=== PATIENT | male | born 1950 | race Caucasian/White ===

== ENCOUNTER 2022-09-28 10:48 | Day surgery (SDC) | payer MEDICARE, SELFPAY ==
[2022-09-25 09:48] VITALS: BMI 30.9
--- NOTE | 2022-09-28 07:46 | WPDANESEPPF ---
Anes - Initial Pre Proc Eval Procedure: Operation Date: 09/28/22 14:00 Proposed Procedures p Diagnostic Colonoscopy - Randell Watkins MD Date/Time: 09/28/22 07:46 Surgeon: Randell Watkins MD Pre Op Diagnosis: Melena, Hx of colon polyps, uspecified hemorrhoids Patient Data Age: 72 Gender: M Height: 1.75 m Weight: 95 kg Allergies Allergy/AdvReac Type Severity Reaction Status Date / Time cortisone Allergy Severe TREMORS Verified 09/28/22 11:00 iodine Allergy Unknown Unknown Verified 09/28/22 11:00 metronidazole Allergy Unknown Unknown Verified 09/28/22 11:00 prednisone Allergy Unknown Unknown Verified 09/28/22 11:00 ezetimibe [From Zetia] AdvReac Mild muscle Verified 09/28/22 11:00 aches Thlkmsr-WLO-ZzJ Reductase AdvReac Mild body aches Verified 09/28/22 11:00 Inhibitor [Gwgvacn-Lnm-Toq Reductase Inhibitor] Home Medications Medication Instructions Recorded Confirmed Type alprazolam 0.5 mg tablet 0.5 mg PO BID #60 tabs 04/18/22 09/28/22 Rx benazepril 20 mg tablet 20 mg PO DAILY #90 tabs 04/25/22 09/28/22 Rx lactobacillus combination no.9 4 4,000 mmu cells PO DAILY 09/13/22 09/28/22 History billion cell capsule (Adult 50 Plus Probiotic) Patient hx anesthesia problems: none Family hx anesthesia problems: none Results Review: All pre-operative results and documents have been reviewed as part of the pre-operative evaluation. [facility] Past Medical History Medical History (Updated 09/28/22 @ 07:47 by Fredy Moody DO) Anxiety disorder, unspecified BMI 31.0-31.9,adult BMI 32.0-32.9,adult Change in bowel habits Chronic constipation Essential (primary) hypertension Hematochezia Hx of colonic polyps Lipoma of arm Mixed hyperlipidemia Otitis media Family History Family History Father Hypertension Family history of diabetes mellitus in first degree relative Family history of coronary artery disease Sibling Family history of lymphoma Mother Social History Social History Smoking status: Never smoker Second hand tobacco smoke exposure: No Alcohol intake: never Substance use: never Substance use type: does not use Lack of Transportation: No Lack of Food: Never True Current Housing: I Have Housing Concerned About Future Housing: No Difficulty Paying Gas/Electric Bills: No Difficulty Paying for Meds: No Currently Unemployed: No Education: High School Diploma/GED Difficulty w/ Childcare or Family Care: No Living arrangements: with family Occupation/Education: retired 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 Informed Consent: The patient's anesthetic plan and its attendant risks and benefits were discussed with the patient/family/POA. Questions were solicited and answers provided to the satisfaction of the patient/family/POA.
[2022-09-28 11:05] VITALS: BP 147/85; PULSE 70; RESP 16; TEMP 36.9; O2SAT 96
[2022-09-28] MEDS: LACTATED RINGERS 1,000 ML 150 ML IV CONT (11:14)
--- NOTE | 2022-09-28 11:33 | PM.HPGS ---
History of Present Illness History of Present Illness Consent: Risks, benefits, and alternatives have been discussed and questions answered. Patient agrees to proceed with procedure. Chief complaint: Melena, Hx of colon polyps, uspecified hemorrhoids Narrative: Joel West is a 72 year old male who was referred for rectal bleeding. For the past several months he has been seen red blood in his stools. This primarily happens when he is constipated which has also been a problem recently. I removed 2 polyps at the time of his last colonoscopy 6 years ago. He had become constipated several months ago and he was taking Metamucil at that time. He saw something on TV that said that if he takes too much fiber it will clog a person up and therefore he discontinued. He usually has raison bran or Rice Krispies for breakfast. Now he is taking stool softeners and his stools are softer sometimes narrow. Review of Systems Review of Systems: All systems reviewed & are unremarkable except as noted in HPI and below PMFSH Past Medical History Medical History Anxiety disorder, unspecified BMI 31.0-31.9,adult BMI 32.0-32.9,adult Change in bowel habits Chronic constipation Essential (primary) hypertension Hematochezia Hx of colonic polyps Lipoma of arm Mixed hyperlipidemia Otitis media Family History Family History Father Hypertension Family history of diabetes mellitus in first degree relative Family history of coronary artery disease Sibling Family history of lymphoma Mother Social History Social History Smoking status: Never smoker Second hand tobacco smoke exposure: No Alcohol intake: never Substance use: never Substance use type: does not use Lack of Transportation: No Lack of Food: Never True Current Housing: I Have Housing Concerned About Future Housing: No Difficulty Paying Gas/Electric Bills: No Difficulty Paying for Meds: No Currently Unemployed: No Education: High School Diploma/GED Difficulty w/ Childcare or Family Care: No Living arrangements: with family Occupation/Education: retired Additional occupation/education comments: generator mechanic Gender identity (if verbalized by the patient): Male Spiritual care concerns: No Meds Home Medications and Allergies Home Medications Medication Instructions Recorded Confirmed Type alprazolam 0.5 mg tablet 0.5 mg PO BID #60 tabs 04/18/22 09/28/22 Rx benazepril 20 mg tablet 20 mg PO DAILY #90 tabs 04/25/22 09/28/22 Rx lactobacillus combination no.9 4 4,000 mmu cells PO DAILY 09/13/22 09/28/22 History billion cell capsule (Adult 50 Plus Probiotic) Allergies Allergy/AdvReac Type Severity Reaction Status Date / Time cortisone Allergy Severe TREMORS Verified 09/28/22 11:00 iodine Allergy Unknown Unknown Verified 09/28/22 11:00 metronidazole Allergy Unknown Unknown Verified 09/28/22 11:00 prednisone Allergy Unknown Unknown Verified 09/28/22 11:00 ezetimibe [From Zetia] AdvReac Mild muscle Verified 09/28/22 11:00 aches Foklctt-JML-CdD Reductase AdvReac Mild body aches Verified 09/28/22 11:00 Inhibitor [Ukwupnp-Pfz-Nhe Reductase Inhibitor] Vital Signs Vital Signs - 24 hr 09/28/22 11:05 Temperature 36.9 C Pulse Rate 70 Respiratory Rate 16 Blood Pressure 147/85 H Pulse Oximetry 96 Oxygen Delivery Room Air Exam Const: General: alert Orientation/consciousness: patient oriented x3 Resp: Auscultation: clear to auscultation bilaterally Cardio: Rhythm: regular rhythm GI: GI Palp: Yes Soft to palpation and No Tenderness to palpation present (GI) Neuro: General: patient oriented x3 Assessment and Plan Assessment and plan (1) Hematochezia: Code(s): K92.1 - Melena Status: Acute Assessmen
[2022-09-28 12:05] VITALS: BP 134/72; PULSE 65; RESP 16; O2SAT 97
[2022-09-28 12:15] VITALS: BP 138/77; PULSE 65; RESP 18; O2SAT 97
--- NOTE | 2022-09-28 12:21 | WPDANESPN ---
Anes - Prog Note Post-Op Date/Time: 09/28/22 12:21 Cardiovascular status: normal Respiratory status: normal Airway patency: baseline Mental status: baseline Post-Op hydration status: normal Vital Signs: Last Vital Signs Temp 36.9 C 09/28/22 11:05 Pulse 65 09/28/22 12:15 Resp 18 09/28/22 12:15 BP 138/77 09/28/22 12:15 Pulse Ox 97 09/28/22 12:15 O2 Del Method Room Air 09/28/22 12:15 Pain Score (VAS): 0 I/O: Intake & Output 09/27/22 09/28/22 09/28/22 23:59 07:59 15:59 Intake Total 600 Balance 600 Post-procedural complaints: none Patient Feedback: Patient satisfied with anesthetic care. Other Findings: Patient vital signs back to baseline. Patient denies nausea and vomiting. Patient's pain under control. Patient OK for discharge.
[2022-09-28 12:25] VITALS: BP 135/70; PULSE 62; RESP 16; O2SAT 96
== END 2022-09-28 12:38 | disposition home or self-care (01) ==
PROVIDERS: PCP Family Medicine; Visit Provider Internal Medicine Gastroenterology
PROC: 0DJD8ZZ Inspection of Lower Intestinal Tract, Via Natural or Artificial Opening Endoscopic (ICD-10-PCS; CPT 45378; principal; 2022-09-28 14:00)
DX: K62.5 Hemorrhage of anus and rectum (principal); K57.30 Diverticulosis of large intestine without perforation or abscess without bleeding; K64.8 Other hemorrhoids
CPT/HCPCS: 45378

== ENCOUNTER 2024-04-22 13:31 | Outpatient (CLI) | payer MEDICARE, SELFPAY ==
--- OUTSIDE RECORDS SUMMARY | 2024-04-22 13:36 | XMS_ITS | Continuity of Care Document ---
Author Organization [facility] Address [address] [place] [address] [place] [address] Phone Care Team Providers Care Centrifugal Station Operator Name Role Phone Tricia Guzman Unavailable Unavailable Advance Directives Directive Yes / No Effective Date File Name No Information Encounters Encounter Description Practice Location Reason(s) For Visit Diagnoses Date Provider Providers Copied on Encounter [facility], [address], [place], [place], [id number], [place] tel:[phone] [facility] No Information 6 Megan Clarke. [address] , [address], [place], [address], [place]. tel:[phone] Referring Provider: Cisco Rosario MD , [address] [place], [address]. tel:[phone] Family History Family Member Type Diagnosis Age At Onset No Information Payers Payer name Insurance type Covered alliance party ID Authoriza titello(s) [facility] [id number] Social History Type Description Quantity Date Captured Comments Sex Male Smoking Status No Information Chief Complaint And Reason For Visit No Information Reason For Referral Reason For Referral No Information History Of Present Illness Encounter Date Complaint History Of Prese nt Illness No Information Functional Status Date Functional Assessmen t No Information Instructions Date Instruction Additional Infor mation No Information Assessments Type Assessment Date No Information Patient Care Teams Name Effective Dates (start - stop) Status Members No Information
--- OUTSIDE RECORDS SUMMARY | 2024-04-22 13:36 | XMS_ITS | Clinical Summary ---
Author Organization [facility] Address [facility] [address] [place] [address] Care Team Providers Care Home Teaching Grades 7 And 8 Teacher Name Role Phone Cisco Rosario MD Primary Care Provider [phone] Allergies Active Allergy Reactions Criticality Noted Date Comments Cortisone Other (see comment) 02/19/2024 Tremors Iodine Other (see comment) 02/19/2024 Tremors, pt states, if I have iodine again my doctor states it will kill me Medications No known medications Active Problems Problem Noted Date Diagnosed Date Weakness 02/19/2024 Encounters Date Type Department Care Team Description 02/19/2024 1:24 AM RESEARCH LABORATORY MANAGER - 02/19/2024 4:08 PM [facility] Emergency [facility] Emergency Room [address] [place] [address] Winsome Malik MD Neurologic Problem Discharge Disposition: Home or Self Care (Routine Discharge) 02/19/2024 Travel from Last 3 Months Social History Tobacco Use Types Packs/Day Years Used Date Smoking Tobacco: Never Smokeless Tobacco: Never Tobacco Cessation:Counseling Given: Not Answered Alcohol Use Standard Drinks/Week Comments Yes 0 (1 standard drink = 0.6 oz pur e alcohol) Sex and Gender Information Value Date Recorded Sex Assigned at Not on file Legal Sex Male 7:43 PM CDT Gender Identity Not on file Sexual Orientation Not on file Last Filed Vital Signs Vital Sign Reading Time Taken Comments Blood Pressure 128/70 02/19/2024 4:01 PM RESEARCH LABORATORY MANAGER Pulse 89 02/19/2024 4:01 PM RESEARCH LABORATORY MANAGER Temperature 36.8 C (98.2 F) 02/19/2024 4:01 PM RESEARCH LABORATORY MANAGER Respiratory Rate 18 02/19/2024 4:01 PM RESEARCH LABORATORY MANAGER Oxygen Saturation 100% 02/19/2024 4:01 PM RESEARCH LABORATORY MANAGER Inhaled Oxygen Concentration - - Weight 95.3 kg (210 lb) 02/19/2024 1:30 AM RESEARCH LABORATORY MANAGER Height 175.3 cm (5' 9 ) 02/19/2024 1:30 AM RESEARCH LABORATORY MANAGER Body Mass Index 31.01 02/19/2024 1:30 AM RESEARCH LABORATORY MANAGER Plan of Treatment Health Maintenance Due Date Last Done Comments Colorectal Cancer Screening Colonoscopy (10 Years) 1950 Hepatitis C 1969 DTaP, Tdap and Td Vaccines ( 1 - Tdap) 1970 Annual Medicare Wellness Visit 02/13/2016 Pneumococcal Vaccine: 65+ Years (2 of 2 - PPSV23 or PCV20) 11/23/2019 11/22/2018 COVID-19 Vaccine (3 - 2023-2 5 season) 2023 05/25/2020, 05/04/2020 Influenza Adult (#1) 2023 11/22/2018 RSV Immunization or 60+ Years (1 - 1-dose 75+ series) 2026 Zoster Vaccines Completed 01/21/2019, 11/22/2018 Meningococcal B Vaccine Aged Out No l onger eligible based on patient's age to complete this topic Meningococcal Vaccine Aged Out No aly flor eligible based on patient's age to complete this topic RSV Immunizations Under 20 Months Aged Out No longer eligible b ased on patient's age to complete this topic Procedures Procedure Name Priority Date/Time Associated Diagnosis Comments MRI BRAIN WWO+MRA HEAD WO+MRA NECK WWO CON STAT 02/19/2024 3:25 PM RESEARCH LABORATORY MANAGER XR SHOULDER LT 3V STAT 02/19/2024 2:2 6 AM RESEARCH LABORATORY MANAGER ECG 12-LEAD STAT 02/19/2024 2:14 [address]ATORY [address]NAGER CT STROKE(HEAD WO) STAT 02/19/2024 1: 57 AM RESEARCH LABORATORY MANAGER PROTHROMBIN TIME, VENOUS STAT 02/19/2024 1:40 AM RESEARCH LABORATORY MANAGER TROPONIN, QUANT STAT 02/19/2024 1:40 AM RESEARCH LABORATORY MANAGER COMPREHENSIVE METABOLIC PANEL STAT 02/19/2024 1:40 AM RESEARCH LABORATORY MANAGER CBC W/DIFF AUTOMATED STAT 02/19/2024 1:40 AM RESEARCH LABORATORY MANAGER from Last 3 Months Results * MRI BRAIN WWO+MRA HEAD WO+MRA NECK WWO CON (02/19/2024 3:25 PM RESEARCH LABORATORY MANAGER) Anatomical Region Laterality Modality Head, Neck Magnetic Resonan ce 02/19/2024 3:28 PM RESEARCH LABORATORY MANAGER Impressions 02/19/2024 3:38 PM RESEARCH LABORATORY MANAGER IMPRESSION: MRI BRAIN: 1. No acute infarct, intracranial mass, or abnormal intracranial enhancement. 2. Mild small vessel disease and volume loss. MRA HEAD: 1. No evidence of occlusion of or significant stenosis involving the proximal major segments of the craig of Choudhary. MRA NECK: 1. No hemodynamically significant stenosis in the neck. Ordered By: WINSOME MALIK Interpreted By: Saravanan Caraballo MD, 02/19/2024 3:28 PM Narrative 02/19/2024 3:38 PM RESEARCH LABORATORY MANAGER [facility] [address] [place] [address] d DATE: 02/19/2024 11:20 AM INDICATION: Left-sided facial numbness. EXAMINATION: MRI brain with and without contrast. MRA head without contrast. MRA neck with and without contrast. TECHNIQUE: Multiplanar and multisequence MRI images of the brain, MRA images of the head, and MRA images of the neck were obtained before and after uneventful intravenous administration of 20mL GADOBENATE DIMEGLUMINE 529 MG/ML IV SOLN. Both the source images and 3-D/MIP images reviewed. Percent carotid stenosis measured per NASCET criteria. COMPARISON: Head CT 02/19/2024 FINDINGS: MRI BRAIN: No diffusion restriction or evidence of acute infarct. No intracranial mass, mass effect, or midline shift. Postcontrast images reveal no abnormal intracranial enhancement. Patchy foci of FLAIR hyperintensity seen in the hemispheric white matter, likely due to small vessel disease. Mild volume loss with enlargement of ventricles and extra-axial/subarachnoid spaces. No extra-axial collections. Proximal portions of the major intracranial arterial flow voids are patent. No hemorrhagic foci of susceptibility seen on gradient echo images. Cranial cervical junction, sellar content, and pineal region are unremarkable. Mastoid air cells clear. Radial sinuses clear. Right enucleation with ocular prosthesis. MRA head: The intracranial ICA segments are patent and without significant narrowing. Proximal portions of the anterior and middle cerebral arteries are patent. Anterior communicating artery is patent. Posterior circulation is codominant. Basilar artery patent and without significant stenosis to the terminus. Proximal portions of the posterior cerebral arteries, superior cerebellar arteries, and PICA branches are patent. Posterior communicating arteries not well-visualized. MRA NECK: Aortic arch and great vessels: Classic three-vessel aortic arch origin anatomy. Mediastinal great vessels patent and without significant stenosis. Right carotid: No significant stenosis. Left carotid: No significant stenosis. Right vertebral: No significant stenosis. Left vertebral: No significant stenosis. Llor-zp-zboehv images reveal patent antegrade flow related enhancement in the carotid and vertebral arteries in the neck. Procedure Note Saravanan Caraballo MD - 02/19/2024 [facility] [address] [place] [address] d DATE: 02/19/2024 11:20 AM INDICATION: Left-sided facial numbness. EXAMINATION: MRI brain with and without contrast. MRA head withoutcontrast. MRA neck with and without contrast. TECHNIQUE: Multiplanar and multisequence MRI images of the brain, MRAimages of the head, and MRA images of the neck were obtained before andafter uneventful intravenous administration of 20mL GADOBENATE [id number] MG/ML IV SOLN. Both the source images and 3-D/MIP images reviewed.Percent carotid stenosis measured per NASCET criteria. COMPARISON: Head CT 02/19/2024 FINDINGS: MRI BRAIN: No diffusion restriction or evidence of acute infarct. No intracranialmass, mass effect, or midline shift. Postcontrast images reveal noabnormal intracranial enhancement. Patchy foci of FLAIR hyperintensityseen in the hemispheric white matter, likely due to small vessel disease.Mild volume loss with enlargement of ventricles andextra-axial/subarachnoid spaces. No extra-axial collections. Proximalportions of the major intracranial arterial flow voids are patent. Nohemorrhagic foci of susceptibility seen on gradient echo images. Cranialcervical junction, sellar content, and pineal region are unremarkable.Mastoid air cells clear. Radial sinuses clear. Right enucleation withocular prosthesis. MRA head: The intracranial ICA segments are patent and without significantnarrowing. Proximal portions of the anterior and middle cerebral arteriesare patent. Anterior communicating artery is patent. Posterior circulationis codominant. Basilar artery patent and without significant stenosis tothe terminus. Proximal portions of the posterior cerebral arteries,superior cerebellar arteries, and PICA branches are patent. Posteriorcommunicating arteries not well-visualized. MRA NECK: Aortic arch and great vessels: Classic three-vessel aortic arch originanatomy. Mediastinal great vessels patent and without significantstenosis. Right carotid: No significant stenosis. Left carotid: No significant stenosis. Right vertebral: No significant stenosis. Left vertebral: No significant stenosis. Ovzx-zv-oxfvwd images reveal patent antegrade flow related enhancement inthe carotid and vertebral arteries in the neck. IMPRESSION: MRI BRAIN: 1. No acute infarct, intracranial mass, or abnormal intracranialenhancement. 2. Mild small vessel disease and volume loss. MRA HEAD: 1. No evidence of occlusion of or significant stenosis involving theproximal major segments of the craig of Choudhary. MRA NECK: 1. No hemodynamically significant stenosis in the neck. Ordered By: WINSOME MALIK Interpreted By: Saravanan Caraballo MD, 02/19/2024 3:28 PM Winsome Malik MD MRI Final Result * XR SHOULDER LT 3V (02/19/2024 2:26 AM RESEARCH LABORATORY MANAGER) Anatomical Region Laterality Modality Shoulder Radiographic Consuelo ging 02/19/2024 2:38 AM RESEARCH LABORATORY MANAGER Impressions 02/19/2024 2:39 AM RESEARCH LABORATORY MANAGER IMPRESSION: No acute osseous abnormality. Degenerative changes as above. Referred By: Interpreted By: Demetrio Denton, 02/19/2024 2:38 AM Narrative 02/19/2024 2:39 AM RESEARCH LABORATORY MANAGER [facility] [address] [place] [address] INDICATION: Pain COMPARISON: None TECHNIQUE: AP internal/external and scapular Y left shoulder views FINDINGS: No acute fracture, dislocation, or other acute bony abnormality identified. No evidence of bone erosion or lisbeth bone destruction. Moderate-severe AC joint arthrosis. Mild glenohumeral joint arthrosis. Soft tissues unremarkable. Procedure Note Demetrio Denton MD - 02/19/2024 [facility] [address] [place] [address] INDICATION: Pain COMPARISON: None TECHNIQUE: AP internal/external and scapular Y left shoulder views FINDINGS: No acute fracture, dislocation, or other acute bony abnormalityidentified. No evidence of bone erosion or lisbeth bone destruction.Moderate-severe AC joint arthrosis. Mild glenohumeral joint arthrosis.Soft tissues unremarkable. IMPRESSION: No acute osseous abnormality. Degenerative changes asabove. Referred By: Interpreted By: Demetrio Denton, 02/19/2024 2:38 AM Winsome Malik MD GENERAL IMAGING Final Result * ECG 12 lead (02/19/2024 2:14 AM RESEARCH LABORATORY MANAGER) 02/19/2024 2:14 AM RESEARCH LABORATORY MANAGER Narrative [facility] RAD - 02/20/2024 8:50 AM RESEARCH LABORATORY MANAGER [facility] Test Date: 2024-02-19 Pat Name: JOEL TURNER Department: 85 Room: EXAM 4 Gender: M I O Psychologist: : 1950 Requested By: WINSOME MALIK Order Number: [id number] Rios MD: Kapil Tucker Measurements Intervals [place] Rate: 81 P: 31 WV: 191 QRS: 18 QRSD: 88 T: 51 QT: 362 QTc: 422 Interpretive Statements SINUS RHYTHM No previous ECG available for comparison ARCH LABORATORY MANAGER Procedure Note Kapil Tucker MD - 02/20/2024 [facility] Test Date: 2024-02-19 Pat Name: JOEL TURNER Department: 85 Room: EXAM 4 Gender: M I O Psychologist: : 1950 Requested By: WINSOME MALIK Order Number: [id number] Reading MD: Kapil Tucker Measurements Intervals [place] Rate: 81 P: 31 WV: 191 QRS: 18 QRSD: 88 T: 51 QT: 362 QTc: 422 Interpretive Statements SINUS RHYTHM No previous ECG available for comparison ARCH LABORATORY MANAGER us Winsome Malik MD ECG ORDERABLES Final Result [facility] ([facility]) RAD * CT STROKE(HEAD WO) (02/19/2024 1:57 AM RESEARCH LABORATORY MANAGER) Anatomical Region Laterality Modality Head Computed Tomogra phy 02/19/2024 1:57 AM RESEARCH LABORATORY MANAGER Impressions 02/19/2024 2:00 AM RESEARCH LABORATORY MANAGER IMPRESSION: No acute intracranial findings. If there is persistent clinical concern for acute ischemia, brain MRI is more sensitive. Referred By: Interpreted By: Owen Mahoney MD, 02/19/2024 1:57 AM Narrative 02/19/2024 2:00 AM RESEARCH LABORATORY MANAGER [facility] [address] [place] [address] EXAMINATION: CT of the head, stroke EXAM DATE/TIME: 02/19/2024 1:48 AM REASON FOR EXAM: 74 years of age, Male, with facial numbness COMPARISON: No existing relevant imaging study available. TECHNIQUE: Axial CT images of the brain are obtained from skull base through vertex without the use of IV contrast agent. A dose lowering technique was used for this procedure, which may include, but is not limited to, dose reduction technique, automated exposure control, iterative reconstruction, ALARA (As Low As Reasonably Achievable), or Image Gently techniques. FINDINGS: No acute intracranial hemorrhage or CT evidence of acute-subacute, large territory infarct. There is no evidence of hydrocephalus, extraaxial fluid collection, mass effect or midline shift. There is no acute displaced calvarial fracture. Visualized paranasal sinuses and mastoid air cells are clear. Procedure Note Owen Mahoney MD - 02/19/2024 [facility] [address] [place] [address] EXAMINATION: CT of the head, stroke EXAM DATE/TIME: 02/19/2024 1:48 AM REASON FOR EXAM: 74 years of age, Male, with facial numbness COMPARISON: No existing relevant imaging study available. TECHNIQUE: Axial CT images of the brain are obtained from skull basethrough vertex without the use of IV contrast agent. A dose loweringtechnique was used for this procedure, which may include, but is notlimited to, dose reduction technique, automated exposure control,iterative reconstruction, ALARA (As Low As Reasonably Achievable), orImage Gently techniques. FINDINGS: No acute intracranial hemorrhage or CT evidence of acute-subacute, largeterritory infarct. There is no evidence of hydrocephalus, extraaxial fluid collection, masseffect or midline shift. There is no acute displaced calvarial fracture. Visualized paranasal sinuses and mastoid air cells are clear. IMPRESSION: No acute intracranial findings. If there is persistent clinical concernfor acute ischemia, brain MRI is more sensitive. Referred By: Interpreted By: wOen Mahoney MD, 02/19/2024 1:57 AM Winsome Malik MD CT Final Result * PROTIME/INR, VENOUS (02/19/2024 1:40 AM RESEARCH LABORATORY MANAGER) PROTIME 11.9 9.1 - 12.4 SEC 02/19/2024 2:03 AM RESEARCH LABORATORY MANAGER [facility] INR 1.1 02/19/2024 2:03 AM [facility] Comment: Recommend INR ranges for Oral Anticoagulant Therapy: Mechanical Cardiac Values 2.5-3.5 All others indication 2.0-3.0 02/19/2024 1:40 AM RESEARCH LABORATORY MANAGER Winsome Malik MD LABORATORY Final Result [facility] [address] [place] [address], * (ABNORMAL) COMPREHENSIVE METABOLIC PANEL (02/19/2024 1:40 AM RESEARCH LABORATORY MANAGER) GLUCOSE 122(H) 70 - 99 MG/DL 02/19/2024 2:13 AM [facility] BUN 15 7 - 18 MG/DL 02/19/2024 2:13 AM [facility] CREATININE S/P/B 0.75 0.7 - 1.3 MG/DL 02/19/2024 2:13 AM [facility] SODIUM S/P/B 141 136 - 145 MMOL/L 02/19/2024 2:13 AM [facility] POTASSIUM S/P/B 3.8 3.5 - 5.1 MMOL/L 02/19/2024 2:13 AM [facility] CHLORIDE S/P/B 107 100 - 108 MMOL/L 02/19/2024 2:13 AM [facility] CO2 25.8 21 - 32 MMOL/L 02/19/2024 2:13 AM [facility] CALCIUM S/P/B 9.1 8.5 - 10.1 MG/DL 02/19/2024 2:13 AM [facility] BILIRUBIN TOTAL S/P/B 0.9 0.2 - 1.2 MG/DL 02/19/2024 2:13 AM [facility] TOTAL PROTEIN S/P/B 6.5 6.4 - 8.2 G/DL 02/19/2024 2:13 AM [facility] ALBUMIN S/P/B 3.6 3.4 - 5.0 G/DL 02/19/2024 2:13 AM [facility] AST 14(L) 15 - 37 U/L 02/19/2024 2:13 AM [facility] ALT 15(L) 16 - 60 U/L 02/19/2024 2:13 AM [facility] ALKALINE PHOSPHATASE S/P/B 78 50 - 136 U/L 02/19/2024 2:13 AM [facility] ANION GAP 8.2 5 - 15 MMOL/L 02/19/2024 2:13 AM [facility] BUN CREATININE RATIO 20.0 6 - 26 02/19/2024 2:13 AM [facility] A/G RATIO 1.2 1.0 - 2.0 RATIO 02/19/2024 2:13 AM [facility] GFR ESTIMATE >90 >90 ML/MIN/1.7 3 M2 02/19/2024 2:13 AM [facility] Comment: NOTE: eGFR is not calculated for patients <18 years of age. This is an estimated GFR calculation using the new CKD EPI creatinine equation without race and so does not require a correction factor for race. This estimated GFR should not be used for calculating drug doses. 02/19/2024 1:40 AM RESEARCH LABORATORY MANAGER Winsome Malik MD LABORATORY Final Result [facility] [address] [place] [address], [place] [phone] * (ABNORMAL) CBC W/DIFF AUTOMATED (02/19/2024 1:40 AM RESEARCH LABORATORY MANAGER) [facility] WBC 7.32 4.4 - 11.0 x10'3/uL 02/19/2024 2:35 AM [facility] RBC 5.10 4.50 - 5.90 x10'6/uL 02/19/2024 2:35 AM [facility] HGB 15.6 14.0 - 17.5 G/DL 02/19/2024 2:35 AM [facility] HCT 45.5 41.5 - 50.4 % 02/19/2024 2:35 AM [facility] MCV 89.2 80.0 - 96.0 FL 02/19/2024 2:35 AM [facility] MCH 30.6 26.5 - 31.4 PG 02/19/2024 2:35 AM [facility] MCHC 34.3 31.9 - 34.8 G/DL 02/19/2024 2:35 AM [facility] RDW 13.0 12.3 - 14.3 % 02/19/2024 2:35 AM [facility] PLT 244 151 - 353 x10'3/uL 02/19/2024 2:35 AM [facility] MPV 9.3(L) 9.7 - 11.9 FL 02/19/2024 2:35 AM [facility] RBC MORPHOLOGY NORMAL 02/19/2024 2:35 AM [facility] PLT MORPH. NORMAL 02/19/2024 2:35 AM [facility] WBC MORPHOLOGY NORMAL 02/19/2024 2:35 AM [facility] LYMPHOCYTES % 23.0 15.8 - 45.0 % 02/19/2024 2:35 AM [facility] NEUTROPHILS % 54.7 42.1 - 71.9 % 02/19/2024 2:35 AM RESEARCH LABORATORY MANAGER [facility] MONOCYTES % 15.2(H) 5.7 - 12.5 % 02/19/2024 2:35 AM RESEARCH LABORATORY MANAGER [facility] EOSINOPHILS 5.5 0.0 - 5.6 % 02/19/2024 2:35 AM RESEARCH LABORATORY MANAGER [facility] BASOPHILS 0.8 0.0 - 1.3 % 02/19/2024 2:35 AM RESEARCH LABORATORY MANAGER [facility] ABS. NEUTROPHILS 4.01 1.40 - 6.00 x10'3/uL 02/19/2024 2:35 AM RESEARCH LABORATORY MANAGER [facility] IMMATURE GRANS % 0.8(H) 0.0 - 0.5 % 02/19/2024 2:35 AM RESEARCH LABORATORY MANAGER [facility] ABS. LYMPHOCYTES 1.68 0.80 - 4.70 x10'3/uL 02/19/2024 2:35 AM RESEARCH LABORATORY MANAGER [facility] 02/19/2024 1:40 AM RESEARCH LABORATORY MANAGER us Winsome Malik MD LABORATORY Final Result [facility] [address] [place] [address], * TROPONIN, QUANT (02/19/2024 1:40 AM RESEARCH LABORATORY MANAGER) TROPONIN I HIGH SENSITIVITY 6 0 - 75 ng/L 02/19/2024 2:15 AM RESEARCH LABORATORY MANAGER [facility] Comment: HIGH DOSES OF BIOTIN, TROPONIN-SPECIFIC AUTOANTIBODIES, AND ANTIBODY THERAPY CONTAINING HAMA MAY INTERFERE WITH THIS TEST RESULT. CORRELATION TO CLINICAL HISTORY AND PRESENTATION RECOMMENDED. 02/19/2024 1:40 AM RESEARCH LABORATORY MANAGER us Winsome Malik MD LABORATORY Final Result [facility] [address] [place] [address], from Last 3 Months Insurance [facility] Care Teams Home Teaching Grades 7 And 8 Teacher Relationship Specialty Start Date End Date Cisco Rosario MD [address] [address] PCP - General FAMILY PRACTICE 02/19/24
--- NOTE | 2024-04-22 14:30 | NEURO_ITS ---
Impression: # Complains of paresthesia of lower extremities. ? 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 ? # Needle/EMG exam neurogenic in left more than right lower extremity. ? # Clinical correlation recommended; MRI of spin suggested. ?Nerve Conduction Studies Anti Sensory Summary Table ?Stim Site NR Peak (ms) P-T Amp (?V) Site1 Site2 Delta-P (ms) Dist (cm) Donovan (m/s) Left Sup Fibular Anti Sensory (Ant Lat Mall) 14 cm ? 3.9 5.5 14 cm Ant Lat Mall 3.9 16.0 41 Right Sup Fibular Anti Sensory (Ant Lat Mall) 14 cm ? 2.9 15.2 14 cm Ant Lat Mall 2.9 16.0 55 Left Sural Anti Sensory (Lat Mall) Calf ? 3.8 13.3 Calf Lat Mall 3.8 16.0 42 Right Sural Anti Sensory (Lat Mall) Calf ? 3.5 7.4 Calf Lat Mall 3.5 16.0 46 Motor Summary Table ?Stim Site NR Onset (ms) O-P Amp (mV) Site1 Site2 Delta-0 (ms) Dist (cm) Donovan (m/s) Left Peroneal Motor (Vastus Med) Ankle ? 4.8 4.0 Popit Ankle 9.3 41.0 44 Popit ? 14.1 3.2 Right Peroneal Motor (Vastus Med) Ankle ? 3.8 5.8 Popit Ankle 9.3 39.0 42 Popit ? 13.1 4.5 Left Tibial Motor (Abd Saldaña Brev) Ankle ? 4.9 1.4 Knee Ankle 9.4 41.0 44 Knee ? 14.3 0.9 Right Tibial Motor (Abd Saldaña Brev) Ankle ? 4.8 1.0 Knee Ankle 9.3 40.0 43 Knee ? 14.1 1.3 F Wave Studies ?NR F-Lat (ms) L-R F-Lat (ms) Left Peroneal (Mrkrs) (EDB) ? 55.16 1.05 Right Peroneal (Mrkrs) (EDB) ? 56.21 1.05 Left Tibial (Mrkrs) (Abd Hallucis) ? 56.62 1.17 Right Tibial (Mrkrs) (Abd Hallucis) ? 55.45 1.17 EMG ?Side Muscle Nerve Root Ins Act Fibs Amp Dur Recrt Comment Right AntTibialis Dp Br Fibular L4-5 Nml Nml Nml Nml Nml Right Gastroc Tibial S1-2 Nml Nml Nml Nml Nml Right Fibularis Long Sup Br Fibular L5-S1 Nml Nml Nml Nml Nml Right Flex Dig Long Tibial L5-S2 Nml Nml Nml Nml Nml Right Ext Dig Brev Dp Br Fibular L5, S1 Nml Nml Nml Nml Nml Right QuadratusFem QuadFemoris L4-5, S1 Nml Nml Nml Nml Nml Left AntTibialis Dp Br Fibular L4-5 Nml Nml Nml Nml Nml Left Gastroc Tibial S1-2 Nml Nml Nml Nml Nml Left Fibularis Long Sup Br Fibular L5-S1 Nml Nml Nml Nml Nml Left Flex Dig Long Tibial L5-S2 Nml Nml Nml Nml Nml Left Ext Dig Brev Dp Br Fibular L5, S1 Nml Nml Nml Nml Nml Left QuadratusFem QuadFemoris L4-5, S1 Nml Nml Nml Nml Nml ? MTDD
== END 2024-04-22 13:32 | disposition home or self-care (01) ==
PROVIDERS: PCP Family Medicine; Visit Provider Physician Assistant Medical
DX: R20.0 Anesthesia of skin (principal); R20.2 Paresthesia of skin
CPT/HCPCS: 95886; 95910

== ENCOUNTER 2024-05-26 11:27 | Outpatient (CLI) | payer MEDICARE, SELFPAY ==
--- NOTE | ~2024-05-26 | XR_ITS ---
EXAMINATION: XR knee RT 3V DATE: 05/26/2024 11:58 INDICATION: Pain in right knee. TECHNIQUE: 3 views of right knee including standing views were obtained. COMPARISON: None. FINDINGS: Alignment is normal. No fracture. There is moderate osteoarthritis of medial compartment an d mild osteoarthritis of lateral and patellofemoral compartments. No knee joint effusion. IMPRESSION: 1. Moderate right knee osteoarthritis. Reviewed, dictated and finalized at location A.
--- OUTSIDE RECORDS SUMMARY | 2024-05-26 13:34 | XMS_ITS | Clinical Summary ---
Author Organization [facility] Address [facility] [place] [address] Care Team Providers Care Iv Rn Name Role Phone Cisco Rosario MD Primary Care Provider [phone] Allergies Active Allergy Reactions Criticality Noted Date Comments Cortisone Other (see comment) 02/19/2024 Tremors Iodine Other (see comment) 02/19/2024 Tremors, pt states, if I have iodine again my doctor states it will kill me Medications No known medications Active Problems Problem Noted Date Diagnosed Date Weakness 02/19/2024 Social History Tobacco Use Types Packs/Day Years [...] Comments Blood Pressure 128/70 02/19/2024 4:01 PM SCHEDULING AGENT Pulse 89 02/19/2024 4:01 PM SCHEDULING AGENT Temperature 36.8 C (98.2 F) 02/19/2024 4:01 PM SCHEDULING AGENT Respiratory Rate 18 02/19/2024 4:01 PM SCHEDULING AGENT Oxygen Saturation 100% 02/19/2024 4:01 PM SCHEDULING AGENT Inhaled Oxygen Concentration - - Weight 95.3 kg (210 lb) 02/19/2024 1:30 AM SCHEDULING AGENT Height 175.3 cm (5' 9 ) 02/19/2024 1:30 AM SCHEDULING AGENT Body Mass Index 31.01 02/19/2024 1:30 AM SCHEDULING AGENT Plan of Treatment Health Maintenance Due Date [...] on patient's age to complete this topic Insurance Care Teams Iv Rn Relationship Specialty Start Date End Date Cisco Rosario MD [address] [address] PCP - General FAMILY PRACTICE 02/19/24
--- OUTSIDE RECORDS SUMMARY | 2024-05-26 13:34 | XMS_ITS | Continuity of Care Document ---
Author Organization [facility] Address [address] [place] [address] [place] [address] Phone Care Team Providers Care Tow Motor Mechanic Name Role Phone Tricia Guzman Unavailable Unavailable Advance Directives Directive Yes / No Effective Date File Name No Information Encounters Encounter Description Practice Location Reason(s) For Visit Diagnoses Date Provider Providers Copied on Encounter [facility], [address], [place], [place], [id number], [place] tel:[phone] [facility] (formerly [facility]) No Information 6 Megan Clarke. [address] , [address], [place], [address], [place]. tel:[phone] Referring Provider: Cisco Rosario MD , [address] [place], [address]. tel:[phone] Family History Family Member Type Diagnosis Age At Onset No Information Payers Payer name Insurance type Covered republican ID Authoriza titello(s) [facility] [id number] Social History Type Description Quantity Date Captured [...]
== END 2024-05-26 11:28 | disposition home or self-care (01) ==
PROVIDERS: PCP Family Medicine; Visit Provider Physician Assistant Medical
DX: M17.11 Unilateral primary osteoarthritis, right knee (principal)
CPT/HCPCS: 73562

== ENCOUNTER 2024-07-17 09:08 | Outpatient (CLI) | payer MEDICARE, SELFPAY ==
--- OUTSIDE RECORDS SUMMARY | 2024-07-17 09:12 | XMS_ITS | Clinical Summary ---
Author Organization [facility] Address [facility] [place] [address] Care Team Providers Care Defensive Secondary Coach Name Role Phone Cisco Rosario MD Primary Care Provider [phone] Allergies Active Allergy Reactions Criticality Noted Date [...] Comments Blood Pressure 128/70 02/19/2024 4:01 PM ENVELOPE MAKER Pulse 89 02/19/2024 4:01 PM ENVELOPE MAKER Temperature 36.8 C (98.2 F) 02/19/2024 4:01 PM ENVELOPE MAKER Respiratory Rate 18 02/19/2024 4:01 PM ENVELOPE MAKER Oxygen Saturation 100% 02/19/2024 4:01 PM ENVELOPE MAKER Inhaled Oxygen Concentration - - Weight 95.3 kg (210 lb) 02/19/2024 1:30 AM ENVELOPE MAKER Height 175.3 cm (5' 9 ) 02/19/2024 1:30 AM ENVELOPE MAKER Body Mass Index 31.01 02/19/2024 1:30 AM ENVELOPE MAKER Plan of Treatment Health Maintenance Due Date Last Done Comments Colorectal Cancer Screening Colonoscopy (10 Years) 1950 Hepatitis C 1969 DTaP, Tdap and Td Vaccines ( 1 - Tdap) 1970 Annual Medicare Wellness Visit 02/13/2016 Pneumococcal Vaccine: 50+ Years (2 of 2 - PPSV23) 11/23/2019 11/22/2018 COVID-19 Vaccine (3 - 2023-2 5 season) 2023 05/25/2020, 05/04/2020 RSV Immunization or 60+ Years (1 - [...] patient's age to complete this topic Insurance [facility] Care Teams Defensive Secondary Coach Relationship Specialty Start Date End Date Cisco Rosario MD [address] [place] [address] PCP - General FAMILY PRACTICE 02/19/24
--- OUTSIDE RECORDS SUMMARY | 2024-07-17 09:12 | XMS_ITS | Continuity of Care Document ---
Author Organization [facility] Address [address] [place] [address] [place] [address] Phone Care Team Providers Care Circulation Tender Name Role Phone Tricia Guzman Unavailable Unavailable Advance Directives Directive Yes / No Effective Date File Name No Information Encounters Encounter Description Practice Location Reason(s) For Visit Diagnoses Date Provider Providers Copied on Encounter [facility], [address], [place], [place], [id number], [place] tel:[phone] [facility] No Information 6 Megan Clarke. [address] , [address], [place], [address], [place]. tel:[phone] Referring Provider: Cisco Rosario MD , [address] [place], [address]. tel:[phone] Family History Family Member Type Diagnosis Age At Onset No Information Payers Payer name Insurance type Covered constitution party ID Authoriza titello(s) [facility] [id number] Social History Type Description Quantity Date Captured [...]
--- OUTSIDE RECORDS SUMMARY | 2024-07-17 09:13 | XMS_ITS | Clinical Summary ---
Author Organization [facility] Address [address] [facility] [place] [address] Care Team Providers Care Recruiting Operations Consultant Name Role Phone Cisco Rosario MD Primary Care Provider [phone] Allergies Active Allergy Reactions Criticality Noted Date Comments Hydrocortisone Anaphylaxis High 02/07/2018 Iodine Strong (Lugols) Anaphylaxis High 02/07/2018 Other Other (See comments) Low 03/25/2020 Pt states he was told he cannot take any steroids due to it caused him to shake uncontrollably and was informed to not take any again or else it could be life threatening. 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 Assessment & Plan (04/20/2022 1:05 PM LMSW): Dee today, recommend observation. Assessment & Plan (04/14/2021 2:38 PM LMSW): Stable, recommend observation. Assessment & Plan (03/25/2020 2:24 PM LMSW): Recommend observation. Assessment & Plan (02/19/2019 10:33 AM LMSW): -Stable, continue with observation. Assessment & Plan (02/07/2018 11:22 AM LMSW): -Stable, continue with observation. 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 Assessment & Plan (03/25/2020 2:24 PM LMSW): Recommend observation. 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 Gagnon Assessment & Plan (04/26/2023 1:27 PM LMSW): S/p enucleation with Dr. Eren price.. Assessment & Plan (04/20/2022 1:06 PM LMSW): S/p enucleation with Dr. Eren price. Assessment & Plan (04/14/2021 2:38 PM LMSW): S/p enucleation with Dr. Eren price. Uses Xanax for anxiety as needed. Will re-fill for 2 months but have encouraged him to see his PMD for evaluation of anxiety and continued Rx refills. Assessment & Plan (03/25/2020 2:24 PM LMSW): S/p enucleation - dee. Uses Xanax for anxiety as needed. Assessment & Plan (02/19/2019 10:33 AM LMSW): -Stable, continue to monitor. -No evidence of local recurrence. Assessment & Plan (02/07/2018 11:22 AM LMSW): -Stable, continue to monitor -No evidence of local recurrence. Encounters Date Type Department Care Team Description 06/20/2024 9:04 AM CDT - 06/20/2024 11:59 PM CDT Hospital Encounter [facility] MRI [address] [place] [address] Anesthesia of skin; Paresthesia of skin; Abnormal response to nerve stimulation, unspecified Discharge Disposition: Discharge to home or self care 05/01/2024 Orders Only [facility] Health Information Management [address] [place] [address] Scanning, Provider from Last 3 Months 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) Social History Tobacco Use Types Packs/Day Years Used Date Smoking Tobacco: Never Smokeless Tobacco: Never Sex and Gender Information Value Date Recorded Sex Assigned at Not on file Legal Sex Male 6:47 AM LMSW Gender Identity Not on file Sexual Orientation Not on file Obstetrics History Plan of Treatment Health Maintenance Due Date Last Done Comments Colon Cancer Screening-Colonoscopy 1950 Depression Screening 1950 Fall Risk Assessment 1950 Hepatitis C Screening 1950 DTaP/Tdap/Td Vaccine (1 - Tdap) 1962 Hepatitis B Screening 1969 Abdominal Aortic Aneurysm (AAA) Screen 02/13/2016 Well Visit 65+ 02/13/2016 Pneumococcal vaccine 65+ (2 of 2 - PPSV23) 11/23/2019 11/22/2018 Influenza Vaccine (Season Ended) 2024 11/23/19 19 Zoster Vaccine Completed 01/21/2019, 11/22/2018 Procedures Procedure Name Priority Date/Time Associated Diagnosis Comments MRI LUMBAR SPINE WO CONTRAST Schedule Routine, Read Routine (OP Routine) 06/20/2024 10:16 AM CDT Anesthesia of skin Paresthesia of skin Abnormal response to nerve stimulation, unspecified SCAN - OTHER ORDERS 05/01/2024 from Last 3 Months Results * MRI Lumbar Spine WO Contrast (06/20/2024 10:16 AM CDT) Anatomical Region Laterality Modality Spine N/A Magnetic Resonan ce 06/20/2024 1:19 PM CDT Narrative 06/20/2024 1:25 PM CDT EXAM DESCRIPTION: MRI LUMBAR SPINE WO CONTRAST REASON FOR STUDY: anesthesia of skin. paresthesia of skin. abnormal response to nerve stimulation, unspecified anesthesia of skin. paresthesia of skin. abnormal response to nerve stimulation, TECHNIQUE: Sagittal and Axial imaging includes T1, T2, STIR sequences. COMPARISON: None available. FINDINGS: SEGMENTATION: For the purpose of the dictation assumption is made for the last well-formed disc space seen on series 901, image 8 to be labeled L5-S1. ALIGNMENT: Mild retrolisthesis of L2 on L3 and L3 on L4. Minimal anterolisthesis of L4 on L5. VERTEBRAE: No acute compression fracture in the lumbar spine. Endplate degenerative changes and marginal spur formation ranging up to moderate to severe at L5-S1. The L4-L5 facet joint STIR hyperintense signal can be seen with synovitis in the proper clinical scenario. Rounded T1 and T2 hyperintense foci including in the L3 and L4 vertebral bodies in keeping with intraosseous hemangiomas and/or focal fatty marrow. Rounded T1 and T2 hypointense foci including in the L4 vertebral body measuring 9 mm (series 501, image 7) are indeterminate and could reflect sclerotic lesions such as bone island in a patient without history of malignancy. Request clinical correlation and the need for contrast-enhanced MRI as clinically indicated. DISC HEIGHT: Diffuse disc desiccation and height loss ranging up to moderate to severe at L5-S1. HARDWARE: None in the spine. CORD/CAUDA: Conus medullaris terminates at L1. LOWER THORACIC: Incompletely imaged. The T11-T12 disc bulge indents the ventral thecal sac. INDIVIDUAL DISC LEVELS: L1-L2: Mild disc bulge with facet arthropathy. Flattening of the ventral thecal sac. No significant neural foraminal narrowing. L2-L3: Retrolisthesis of L2 on L3 with unroofing of the disc and marginal spur formation. Superimposed small central disc protrusion. Thickened ligamentum flavum and facet arthropathy. Mild spinal canal stenosis. Lateral recess effacement on both sides. Msfu-zy-tjonpwgb right and mild left neural foraminal narrowing. L3-L4: Retrolisthesis of L3 on L4 with unroofing of the disc and marginal spur formation. Thickened ligamentum flavum and facet arthropathy. Mild spinal canal stenosis. Lateral recess effacement on both sides. Moderate right and qgog-bx-gbyelnim left neural foraminal narrowing. L4-L5: Anterolisthesis of L4 on L5 with unroofing of the disc and marginal spur formation. Thickened ligamentum flavum and facet arthropathy. Severe spinal canal stenosis and lateral recess narrowing on both sides. Moderate to severe neural foraminal narrowing. L5-S1: Disc bulge with marginal spur formation. Bilateral facet arthropathy. No significant spinal canal stenosis. Lateral recess effacement on both sides with disc and thickened ligamentum flavum abutting the descending S1 nerve roots. Moderate proximal neural foraminal narrowing. IMPRESSION: 1. Lumbar disc degeneration ranging up to moderate to severe with thickened ligamentum flavum and facet arthropathy as described. There is severe spinal canal stenosis at L4-L5 and to a lesser extent at L2-L3 and L3-L4. 2. Varying degrees of bilateral neural foraminal narrowing is most noticeable from L3-L4 through L5-S1. 3. Additional findings as described. 4. Previous lumbar spine imaging is not available for comparison. THIS IS AN ELECTRONICALLY VERIFIED FINAL REPORT 06/20/2024 1:25 PM - Electronically signed by Medardo RODRIGUEZ T: Report ID: [id number] Reading Location: [id number] Procedure Note Medardo Rincon, DO - 06/20/2024 EXAM DESCRIPTION: MRI LUMBAR SPINE WO CONTRAST REASON FOR STUDY: anesthesia of skin. paresthesia of skin. abnormalresponse to nerve stimulation, unspecified anesthesia of skin. paresthesia of skin. abnormal response to nerve stimulation, TECHNIQUE: Sagittal and Axial imaging includes T1, T2, STIR sequences. COMPARISON: None available. FINDINGS: SEGMENTATION: For the purpose of the dictation assumption ismade for the last well-formed disc space seen on series 901, image 8 to belabeled L5-S1. ALIGNMENT: Mild retrolisthesis of L2 on L3 and L3 on L4. Minimal anterolisthesis of L4 on L5. VERTEBRAE: No acute compression fracture in the lumbar spine. Endplate degenerative changes and marginal spur formation ranging up to moderate to severe at L5-S1. The L4-L5 facet joint STIR hyperintense signal can beseen with synovitis in the proper clinical scenario. Rounded T1 and T2 hyperintense foci including in the L3 and L4 vertebral bodies in keepingwith intraosseous hemangiomas and/or focal fatty marrow. Rounded T1 and T2 hypointense foci including in the L4 vertebral body measuring 9 mm (series 501, image 7) are indeterminate and could reflect sclerotic lesions suchas bone island in a patient without history of malignancy. Request clinical correlation and the need for contrast-enhanced MRI as clinicallyindicated. DISC HEIGHT: Diffuse disc desiccation and height loss ranging up tomoderate to severe at L5-S1. HARDWARE: None in the spine. CORD/CAUDA: Conus medullaris terminates at L1. LOWER THORACIC: Incompletely imaged. The T11-T12 disc bulge indents the ventral thecal sac. INDIVIDUAL DISC LEVELS: L1-L2: Mild disc bulge with facet arthropathy. Flattening of the ventral thecal sac. No significant neural foraminal narrowing. L2-L3: Retrolisthesis of L2 on L3 with unroofing of the disc and marginalspur formation. Superimposed small central disc protrusion. Thickenedligamentum flavum and facet arthropathy. Mild spinal canal stenosis. Lateral recess effacement on both sides. Nvst-rc-idpgrdiz right and mild left neural foraminal narrowing. L3-L4: Retrolisthesis of L3 on L4 with unroofing of the disc and marginalspur formation. Thickened ligamentum flavum and facet arthropathy. Mildspinal canal stenosis. Lateral recess effacement on both sides. Moderate rightand wzbn-gm-pyxisukc left neural foraminal narrowing. L4-L5: Anterolisthesis of L4 on L5 with unroofing of the disc and marginal spur formation. Thickened ligamentum flavum and facet arthropathy.Severe spinal canal stenosis and lateral recess narrowing on both sides.Moderate to severe neural foraminal narrowing. L5-S1: Disc bulge with marginal spur formation. Bilateral facetarthropathy. No significant spinal canal stenosis. Lateral recess effacement on bothsides with disc and thickened ligamentum flavum abutting the descending S1 nerve roots. Moderate proximal neural foraminal narrowing. IMPRESSION: 1. Lumbar disc degeneration ranging up to moderate to severe withthickened ligamentum flavum and facet arthropathy as described. There is severespinal canal stenosis at L4-L5 and to a lesser extent at L2-L3 and L3-L4. 2. Varying degrees of bilateral neural foraminal narrowing is most noticeable from L3-L4 through L5-S1. 3. Additional findings as described. 4. Previous lumbar spine imaging is not available for comparison. THIS IS AN ELECTRONICALLY VERIFIED FINAL REPORT 06/20/2024 1:25 PM - Electronically signed by Medardo RODRIGUEZ T: Report ID: [id number] Reading Location: [place] [address] [address] IMG MRI PROCEDURES Final Res ult * SCAN - OTHER ORDERS (05/01/2024) us Provider Scanning Final Result from Last 3 Months Insurance [facility] MEDICARE ADVANTAGE [facility] MEDICARE Address: [facility] [address] [place] [address] [facility] MEDICARE ADVANTAGE Care Teams Recruiting Operations Consultant Relationship Specialty Start Date End Date Cisco Rosario MD PCP - General 12/11/16
--- OUTSIDE RECORDS SUMMARY | 2024-07-17 09:13 | XMS_ITS | Referral Summary ---
Author Organization [facility] Address [address] [facility] [place] [address] Care Team Providers Care Channeling Machine Operator Name Role Phone Cisco Rosario MD Primary Care Provider [phone] Encounters Date Type Department Care Team Description 06/20/2024 9:04 AM CDT - 06/20/2024 11:59 PM CDT Hospital Encounter [facility] MRI [address] [place] [address] Anesthesia of skin; Paresthesia of skin; Abnormal response to nerve stimulation, unspecified Discharge Disposition: Discharge to home or self care 05/01/2024 Orders Only [facility] Health Information Management [address] [place] [address] Scanning, Provider from Last 3 Months Allergies Active Allergy Reactions Criticality Noted Date [...] 02/07/2018 Assessment & Plan (04/26/2023 1:27 PM ADVERTISING ASSISTANT): Stable today, recommend observation.. Assessment & Plan (04/20/2022 1:05 PM ADVERTISING ASSISTANT): Stable today, recommend observation. Assessment & Plan (04/14/2021 2:38 PM ADVERTISING ASSISTANT): Stable, recommend observation. Assessment & Plan (03/25/2020 2:24 PM ADVERTISING ASSISTANT): Recommend observation. Assessment & Plan (02/19/2019 10:33 AM ADVERTISING ASSISTANT): -Stable, continue with observation. Assessment & Plan (02/07/2018 11:22 AM ADVERTISING ASSISTANT): -Stable, continue with observation. 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 Assessment & Plan (03/25/2020 2:24 PM ADVERTISING ASSISTANT): Recommend observation. 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 Gagnon Assessment & Plan (04/26/2023 1:27 PM ADVERTISING ASSISTANT): S/p enucleation with Dr. Eren price.. Assessment & Plan (04/20/2022 1:06 PM ADVERTISING ASSISTANT): S/p enucleation with Dr. Eren price. Assessment & Plan (04/14/2021 2:38 PM ADVERTISING ASSISTANT): S/p enucleation with Dr. Eren price. Uses Xanax for anxiety as needed. Will re-fill for 2 months but have encouraged him to see his PMD for evaluation of anxiety and continued Rx refills. Assessment & Plan (03/25/2020 2:24 PM ADVERTISING ASSISTANT): S/p enucleation - dee. Uses Xanax for anxiety as needed. Assessment & Plan (02/19/2019 10:33 AM ADVERTISING ASSISTANT): -Stable, continue to monitor. -No evidence of local recurrence. Assessment & Plan (02/07/2018 11:22 AM ADVERTISING ASSISTANT): -Stable, continue to monitor -No evidence of local recurrence. Social History Tobacco Use Types Packs/Day Years Used Date Smoking Tobacco: Never Smokeless Tobacco: Never Sex and Gender Information Value Date Recorded Sex Assigned at Not on file Legal Sex Male 6:47 AM ADVERTISING ASSISTANT Gender Identity Not on file Sexual Orientation Not on file Plan of Treatment Not on file Procedures Procedure Name Priority Date/Time Associated Diagnosis [...] stenosis. Lateral recess effacement on both sides. Egwt-qo-ejsoputv right and mild left neural foraminal narrowing. L3-L4: Retrolisthesis of L3 on L4 with unroofing of the disc and marginal spur formation. Thickened ligamentum flavum and facet arthropathy. Mild spinal canal stenosis. Lateral recess effacement on both sides. Moderate right and spzg-xr-nzbpqygu left neural foraminal narrowing. L4-L5: Anterolisthesis of [...] signed by Medardo RODRIGUEZ T: Report ID: [id number] Reading Location: [place] [address] Procedure Note Medardo Rincon, DO - 06/20/2024 [...] stenosis. Lateral recess effacement on both sides. Sdag-mb-lhrrppnr right and mild left neural foraminal narrowing. L3-L4: Retrolisthesis of L3 on L4 with unroofing of the disc and marginalspur formation. Thickened ligamentum flavum and facet arthropathy. Mildspinal canal stenosis. Lateral recess effacement on both sides. Moderate rightand ohuk-cj-vrnxtmib left neural foraminal narrowing. L4-L5: Anterolisthesis of [...] signed by Medardo RODRIGUEZ T: Report ID: [id number] Reading Location: [id number] [place] [facility] IM[facility] MRI PROCEDURES Final Res ult * SCAN - OTHER ORDERS (05/01/2024) us Provider Scanning Final Result from Last 3 Months Insurance Care Teams Channeling Machine Operator Relationship Specialty Start Date End Date Cisco Rosario MD PCP - General 12/11/16
[2024-07-17 11:01] LABS: Hemoglobin A1C 5.5 % (<5.7)
[2024-07-18 12:13] LABS: Homocysteine 13.7 umol/L (<11.4)
[2024-07-18 15:29] LABS: Red Blood Cell Folate 483 ng/mL RBC (>280)
[2024-07-19 23:23] LABS: Immunofixation, Serum Normal pattern.
[2024-07-20 09:09] LABS: Methylmalonic Acid 91 nmol/L (69-390)
[2024-07-21 10:54] LABS: Vitamin B1 17 nmol/L (8-30)
[2024-07-21 15:13] LABS: Vitamin B6 16.7 ng/mL (2.1-21.7)
[2024-07-22 09:59] LABS: Alpha-Tocopherol 14.1 mg/L (5.7-19.9); Beta-Gamma Tocopherol 1.4 mg/L (<4.4)
[2024-07-22 14:12] LABS: Vitamin D 1,25 (OH)2 Total 54 pg/mL (18-72); Vitamin D2 1,25 (OH)2 <8 pg/mL; Vitamin D3 1,25 (OH)2 54 pg/mL
== END 2024-07-17 09:09 | disposition home or self-care (01) ==
LOC: ANHLAB 09:10
PROVIDERS: PCP Family Medicine; Visit Provider Psychiatry & Neurology Neurology
DX: G62.9 Polyneuropathy, unspecified (principal); E55.9 Vitamin D deficiency, unspecified; Z13.1 Encounter for screening for diabetes mellitus
CPT/HCPCS: 36415; 82607; 82652; 82747; 83036; 83090; 83921; 84207; 84425; 84446; 86038; 86039; 86334

== ENCOUNTER 2025-02-03 12:03 | Outpatient (CLI) | payer MEDICARE, SELFPAY ==
--- OUTSIDE RECORDS SUMMARY | 2025-02-03 12:54 | XMS_ITS | Clinical Summary ---
Author Organization [facility] [address] Address [address] [facility] [place] [address] Care Team Providers Care Medical Office Administrator Name Role Phone Cisco Rosario MD Primary Care Provider + [phone] Allergies Active Allergy Reactions Criticality Noted Date [...] 02/07/2018 Assessment & Plan (04/26/2023 1:27 PM PROBATION SUPERVISOR): Stable today, recommend observation.. Assessment & Plan (04/20/2022 1:05 PM PROBATION SUPERVISOR): Dee today, recommend observation. Assessment & Plan (04/14/2021 2:38 PM PROBATION SUPERVISOR): Stable, recommend observation. Assessment & Plan (03/25/2020 2:24 PM PROBATION SUPERVISOR): Recommend observation. Assessment & Plan (02/19/2019 10:33 AM PROBATION SUPERVISOR): -Stable, continue with observation. Assessment & Plan (02/07/2018 11:22 AM PROBATION SUPERVISOR): -Stable, continue with observation. 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 Assessment & Plan (03/25/2020 2:24 PM PROBATION SUPERVISOR): Recommend observation. 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 Gagnon Assessment & Plan (04/26/2023 1:27 PM PROBATION SUPERVISOR): S/p enucleation with Dr. Eren price.. Assessment & Plan (04/20/2022 1:06 PM PROBATION SUPERVISOR): S/p enucleation with Dr. Eren price. Assessment & Plan (04/14/2021 2:38 PM PROBATION SUPERVISOR): S/p enucleation with Dr. Eren price. Uses Xanax for anxiety as needed. Will re-fill for 2 months but have encouraged him to see his PMD for evaluation of anxiety and continued Rx refills. Assessment & Plan (03/25/2020 2:24 PM PROBATION SUPERVISOR): S/p enucleation - dee. Uses Xanax for anxiety as needed. Assessment & Plan (02/19/2019 10:33 AM PROBATION SUPERVISOR): -Stable, continue to monitor. -No evidence of local recurrence. Assessment & Plan (02/07/2018 11:22 AM PROBATION SUPERVISOR): -Stable, continue to monitor -No evidence of local recurrence. 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) Social History Tobacco Use Types Packs/Day Years Used Date Smoking Tobacco: Never Smokeless Tobacco: Never Sex and Gender Information Value Date Recorded Sex Assigned at Not on file Legal Sex Male 6:47 AM PROBATION SUPERVISOR Gender Identity Not on file Sexual Orientation Not on file Plan of Treatment Health Maintenance Due Date Last Done Comments Colon Cancer Screening-Colonoscopy 1950 Depression Screening 1950 Fall Risk Assessment 1950 Hepatitis C Screening 1950 DTaP/Tdap/Td Vaccine (1 - Tdap) 1962 Hepatitis B Screening 1969 Abdominal Aortic Aneurysm (AAA) Screen 02/13/2016 Well Visit 65+ 02/13/2016 Pneumococcal vaccine 65+ (2 of 2 - PCV20 or PCV21) 11/23/2019 11/22/2018 Influenza Vaccine (#1) 2024 11/22/2018 Zoster Vaccine Completed 01/21/2019, 11/22/2018 Insurance [facility] MEDICARE [facility] Address[id number] [place] [address] [facility] MEDICARE [facility]IC[facility] Address: [facility] [address] [place] [address] Care Teams Medical Office Administrator Relationship Specialty Start Date End Date Cisco Rosario MD PCP - General 12/11/16
--- OUTSIDE RECORDS SUMMARY | 2025-02-03 12:54 | XMS_ITS | Clinical Summary ---
Author Organization [facility] Address [facility] [place] [address] Care Team Providers Care Security Control Room Officer Name Role Phone Cisco Rosario MD Primary Care Provider Allergies Active Allergy Reactions Criticality Noted Date [...] Comments Blood Pressure 128/70 02/19/2024 4:01 PM CONVERTIBLE POWER SHOVEL OPERATOR Pulse 89 02/19/2024 4:01 PM CONVERTIBLE POWER SHOVEL OPERATOR Temperature 36.8 C (98.2 F) 02/19/2024 4:01 PM CONVERTIBLE POWER SHOVEL OPERATOR Respiratory Rate 18 02/19/2024 4:01 PM CONVERTIBLE POWER SHOVEL OPERATOR Oxygen Saturation 100% 02/19/2024 4:01 PM CONVERTIBLE POWER SHOVEL OPERATOR Inhaled Oxygen Concentration - - Weight 95.3 kg (210 lb) 02/19/2024 1:30 AM CONVERTIBLE POWER SHOVEL OPERATOR Height 175.3 cm (5' 9) 02/19/2024 1:30 AM CONVERTIBLE POWER SHOVEL OPERATOR Body Mass Index 31.01 02/19/2024 1:30 AM CONVERTIBLE POWER SHOVEL OPERATOR Plan of Treatment Health Maintenance Due Date Last Done Comments Colorectal Cancer Screening Colonoscopy (10 Years) 1950 Hepatitis C 1969 DTaP, Tdap and Td Vaccines ( 1 - Tdap) 1970 Annual Medicare Wellness Visit 02/13/2016 Pneumococcal Vaccine: 50+ Years (2 of 2 - PCV20 or PCV21) 11/23/2019 11/22/2018 COVID-19 Vaccine (3 - 2024-2 6 season) 2024 05/25/2020, 05/04/2020 Influenza Adult (#1) 2024 11/22/2018 RSV Immunization or 60+ Years (1 - 1-dose 75+ series) 2026 Zoster Vaccines Completed 01/21/2019, 11/22/2018 Hepatitis A Vaccines Aged Out No long er eligible based on patient's age to complete this topic Meningococcal B Vaccine Aged Out No l onger eligible based on patient's age to complete this topic Meningococcal Vaccine Aged Out No aly flor eligible based on patient's age to complete this topic RSV Immunizations Under 20 Months Aged Out No longer eligible b ased on patient's age to complete this topic Insurance [facility] MEDICARE Care Teams Security Control Room Officer Relationship Specialty Start Date End Date Cisco Rosario MD [address] [place] [address] PCP - General FAMILY PRACTICE 02/19/24
[2025-02-03 13:09] LABS: Hematocrit 48.2 % (42.0-52.0); Hemoglobin 16.1 g/dL (14.0-18.0); Immature Granulocyte Percent A 0.3 % (0-0.5); Lymphocytes Absolute Auto 1.33 K/mm3 (0.9-3.2); Mean Corpuscular HGB Conc 33.4 g/dl (32-36); Mean Corpuscular Hemoglobin 30.3 pg (26-34); Mean Corpuscular Volume 90.8 fl (80-100); Nucleated Red Blood Cells Absolute Auto 0.000 K/mm3 (0.0-0.012); Nucleated Red Blood Cells Perc 0.0 % (0.0-0.2); Platelet Count Result 270 k/mm3 (150-375); Red Blood Count 5.31 M/mm3 (4.6-6.20); White Blood Count 7.0 K/mm3 (4.5-10.0)
[2025-02-03 14:03] LABS: Prostate Specific Antigen 2.5 ng/mL (< OR = 4.0)
== END 2025-02-03 12:04 | disposition home or self-care (01) ==
PROVIDERS: PCP Family Medicine; Visit Provider Surgery
DX: Z12.5 Encounter for screening for malignant neoplasm of prostate (principal); Z68.32 Body mass index [BMI] 32.0-32.9, adult
CPT/HCPCS: 36415; 84153; 85025; G0103

== ENCOUNTER 2025-02-23 09:08 | Outpatient (CLI) | payer MEDICARE, SELFPAY ==
--- NOTE | ~2025-02-23 | MR_ITS ---
EXAMINATION: MR lumbar spine wo con DATE: 02/23/2025 09:33 INDICATION: Anesthesia of skin. Low back pain. TECHNIQUE: Magnetic resonance imaging (MRI) of the lumbar spine was performed without intravenous contrast. Sequences included sagittal T2-weighted FSE, sagittal T2-weighted FS FSE, sagittal T1-weighted FSE, and axial T2-weighted FSE. COMPARISON: None FINDINGS: There is 3 degrees dextrocurvature of lumbar spine. There is mild chronic anterior wedging of T12 vertebral body. There is severely decreased disc height at L2-L3, mildly decreased disc height at L3-L4, and severely decreased disc height at L5-S1. The distal spinal cord signal intensity is normal. The conus medullaris is at L1. The following disc levels are specifically discussed: L1-L2: The disc is bulging. There is mild bilateral facet joint osteoarthritis. There is mild bilateral neural foraminal stenosis. There is mild central canal stenosis. L2-L3: The disc is bulging and has an annular fissure. There is mild bilateral facet joint osteoarthritis. There is moderate bilateral neural foraminal stenosis. There is mild central canal stenosis. L3-L4: The disc is bulging and has an annular fissure. There is moderate bilateral facet joint osteoarthritis. There is mild bilateral neural foraminal stenosis. There is mild central canal stenosis. L4-L5: The disc is bulging and has an annular fissure. There is severe bilateral facet joint osteoarthritis. There is moderate bilateral neural foraminal stenosis. There is moderate central canal stenosis. L5-S1: The disc is bulging and has an annular fissure. There is severe bilateral facet joint osteoarthritis. There is mild bilateral neural foraminal stenosis. There is no central canal stenosis. IMPRESSION: 1. Severe lumbar spondylosis. Reviewed, dictated and finalized at location E. DRIVER
== END 2025-02-23 09:09 | disposition home or self-care (01) ==
LOC: MICIMG 09:09
PROVIDERS: PCP Family Medicine; Visit Provider Physician Assistant Medical
DX: R20.0 Anesthesia of skin (principal); R20.2 Paresthesia of skin; R94.130 Abnormal response to nerve stimulation, unspecified; M47.896 Other spondylosis, lumbar region
CPT/HCPCS: 72148